=== PATIENT | female | born 1995 | race Caucasian/White ===

== ENCOUNTER 2020-07-30 20:21 | Emergency (ER) | payer BC ==
[~2020-07-30 20:21] MED LIST: Iopamidol-370 76% 500 ML 1 ML ONE
[2020-07-30] MEDS ORDERED: Metoclopramide HCl 10 MG/2 ML VIAL ONE (21:32)
[2020-07-30] MEDS ORDERED: diphenhydrAMINE 50 MG/ML VIAL ONE (21:32)
[2020-07-30 21:55] LABS: BHCG - Serum Negative (NEGATIVE); Pregs Control Background? CLEAR/WHITE (CLR/WHITE); Pregs Control Bar Appear? YES (CONTROL BAR)
[2020-07-30] MEDS ORDERED: Bupivacaine 0.5% 10 ML VIAL ONE (22:20)
== END 2020-07-30 23:04 | disposition home or self-care (01) ==
LOC: ERS 20:21
DX: S16.1XXA Strain of muscle, fascia and tendon at neck level, initial encounter (principal); J45.909 Unspecified asthma, uncomplicated; X50.1XXA Overexertion from prolonged static or awkward postures, initial encounter
CPT/HCPCS: 20552; 36415; 70496; 70498; 84703; 96365; 96375; J1200; J2765; J3490; Q9967

== ENCOUNTER 2022-04-02 14:57 | Outpatient (CLI) | payer BC | END 2022-04-02 14:58 | disposition home or self-care (01) | LOC: SCSMRI 14:57 | PROVIDERS: ATTEND Physician Assistant | DX: R29.898 Other symptoms and signs involving the musculoskeletal system (principal); M51.06 Intervertebral disc disorders with myelopathy, lumbar region; M51.37 Other intervertebral disc degeneration, lumbosacral region; M51.27 Other intervertebral disc displacement, lumbosacral region; M48.061 Spinal stenosis, lumbar region without neurogenic claudication | CPT/HCPCS: 72148 ==